=== PATIENT | female | born 1970 | race Caucasian/White ===

== ENCOUNTER 2022-01-24 17:21 | Emergency (ER) | payer BC ==
[2022-01-24 18:01] VITALS: BP 153/101; PULSE 101; RESP 16; TEMP 99.9; BMI 27.4
[2022-01-24 18:05] LABS: HEMATOCRIT 40.1 % (32.4-45.2); HEMOGLOBIN 13.8 G/dL (10.7-15.3); MCH 35.9 pg (25.7-33.7); MCHC 34.3 g/dl (32.0-36.0); MEAN CELL VOLUME 104.6 fl (80-96); MEAN PLT VOLUME 7.7 fl (7.5-11.1); PLATELET COUNT 297.2 10^3/uL (134-434); RBC 3.83 10^6/uL (3.60-5.2); RDW 13.4 % (11.6-15.6); WHITE BLOOD COUNT 7.7 10^3/uL (4.0-10.8)
[2022-01-24 18:16] LABS: CALCIUM 9.1 mg/dl (8.5-10); CREATININE 0.7 mg/dl (0.55-1.3)
[2022-01-24 18:18] LABS: MACROCYTOSIS 1+
[2022-01-24 18:19] LABS: PLATELET ESTIMATE ADEQUATE
[2022-01-24] MEDS ORDERED: POTASSIUM CHLORIDE ORAL LIQUID 20 MEQ/15 ML PO ONE (18:24)
[2022-01-24] MEDS ORDERED: POTASSIUM CHLORIDE ORAL LIQUID 20 MEQ/15 ML ONE (18:37)
== END 2022-01-24 18:53 | disposition home or self-care (01) ==
LOC: FER 17:21
DX: S16.1XXA Strain of muscle, fascia and tendon at neck level, initial encounter (principal); E87.6 Hypokalemia; Y99.9 Unspecified external cause status
CPT/HCPCS: 36415; 80048; 85027; 99283-25; C9803-CS; U0003; U0005